=== PATIENT | male | born 1980 | race Caucasian/White ===

== ENCOUNTER → 2017-03-26 | Outpatient (CLI) | payer BC ==
[2015-12-15 10:08] VITALS: BP 139/86
[2017-03-26 09:07] LABS: eGFR (African) > 60; eGFR (Non-African) > 60
== END ==
LOC: LAB 08:14
PROVIDERS: ATTEND Family Medicine
DX: E11.9 Type 2 diabetes mellitus without complications (principal)
CPT/HCPCS: 36415; 80053; 80061; 83036

== ENCOUNTER 2019-03-18 18:12 | Emergency (ER) | payer BC ==
[2019-03-18] MEDS ORDERED: AMOXICILLIN/POT 875/125 1 EACH PO ONE (18:38)
--- NOTE | 2019-03-18 18:38 | ED Physician Documentation ---
General Adult - HISTORIAN Historian: patient - HPI Chief Complaint: General Adult Additional Information: 38 year old male presents with c/o fever, body aches, headache, facial pressure; started several days ago; states that he has had the flu vaccine this year. states that he had a fever as high as 104 but has taken Tylenol and temp down to 100.4. He has been taking over the counter "cold" medications with no relief. Onset: days ago (4 days ago) Timing: still present Severity: moderate - ROS CONST: fever, sweating, chills EYES/ENT: nasal congestion CVS/RESP: cough GI/: nausea MS/SKIN/LYMPH: back pain NEURO/PSYCH: headache - PAST HX Past History: hypertension Other History: diabetes Type 2 Immunizations: UTD Allergies/Adverse Reactions: Allergies Allergy/AdvReac Type Severity Reaction Status Date / Time No Known Allergies Allergy Verified 03/18/19 18:40 - SOCIAL HX Smoking History: non-smoker Alcohol Use: none Drug Use: none - FAMILY HX Family History: No - VITAL SIGNS Vital Signs: Vital Signs Temp Pulse Resp BP Pulse Ox 139/86 12/15/15 09:58 - REVIEWED ASSESSMENTS Nursing Assessment Reviewed: Yes Vitals Reviewed: Yes ED Results Lab/Radiology - Orders Orders: ED Orders Category Date Time Status INFLUENZA A&B Stat Lab 03/18/19 Uncollected Amoxicillin/Potassium Clav [AUGMENTIN 875MG/125 mg Med 03/18/19 18:38 Once Tablet] 1 each PO NOW ONE General Adult Physical Exam - PHYSICAL EXAM GENERAL APPEARANCE: mild distress EENT: eye inspection normal, ENT inspection normal, pharynx normal, no signs of dehydration, [place] NECK: normal inspection, supple RESPIRATORY: no resp distress, chest non-tender, breath sounds normal CVS: heart sounds normal, equal pulses ABDOMEN: soft, normal bowel sounds SKIN: warm/dry, normal color EXTREMITIES: non-tender, normal range of motion NEURO: oriented X3, CN's nml as tested, motor nml, sensation nml, speech/cognition abnml Discharge Clincal Impression: Acute sinus infection Referrals: Roxann Dolan MD [Primary Care Provider] - 2 Days Additional Instructions: Take Augmentin 875 mg by mouth twice a day for 10 days >64 oz of water Increase protein and decrease carbs to combat infection Continue with Mucinex twice a day Follow up with PCP next week as needed Condition: Good Disposition: 01 HOME, SELF-CARE Decision to Admit: NO Decision Time: 19:36
[2019-03-18 20:19] VITALS: BP 144/81
== END 2019-03-18 19:25 | disposition home or self-care (01) ==
LOC: ED 18:12
DX: J01.90 Acute sinusitis, unspecified (principal)
CPT/HCPCS: 87400; 99282